=== PATIENT | female | born 1985 | race Caucasian/White ===

== ENCOUNTER → 2023-09-23 | Outpatient (CLI) | payer SELFPAY ==
[2023-09-23 12:14] LABS: Hepatitis B Surface Antibody Non-Reactive
[2023-09-24 05:07] LABS: HEPATITIS B SURFACE AG Negative (Negative); Hep C Antibodies Non Reactive (Non Reactive); Hepatitis A AB, Total Negative (Negative); Hepatitis A IgM Antibody Negative (Negative); Hepatitis B Core AB IgM Negative (Negative)
== END | disposition home or self-care (01) ==
PROVIDERS: Referring Provider Dermatology; Visit Provider Dermatology
DX: L43.8 Other lichen planus (principal)
CPT/HCPCS: 36415; 80074; 86706; 86708